=== PATIENT | female | born 1965 | race Two or more races ===

== ENCOUNTER 2016-07-28 14:08 | Emergency (ER) | payer OTHER ==
[~2016-07-28] VITALS: Ht 157.5 cm; Wt 58.1 kg
[~2016-07-28 14:08] MED LIST: ESTR-7 PO; LEVO75CA2 PO; PRED5TAB PO
[2016-07-28 14:55] LABS: BASOPHILS # (AUTO) 0.1 /CMM (0.0-0.2); BASOPHILS % (AUTO) 0.8 % (0.0-2.0); DIFF TOTAL % 100 %; EOSINOPHILS % (AUTO) 0.2 % (0.0-6.0); HEMATOCRIT 37 % (33-45); HEMOGLOBIN 12.4 g/dL (11.5-14.8); LYMPHOCYTES # (AUTO) 1.2 /CMM (0.8-4.8); LYMPHOCYTES % (AUTO) 14.9 % (20.0-44.0); MEAN CORPUSCULAR HEMOGLOBIN 31 PG (26.0-33.0); MEAN CORPUSCULAR HGB CONC 33 g/dl (31.0-36.0); MEAN CORPUSCULAR VOLUME 92 fL (82-100); MONOCYTES # (AUTO) 0.2 /CMM (0.1-1.30); MONOCYTES % (AUTO) 1.9 % (2.0-12.0); NEUTROPHILS # (AUTO) 6.4 /CMM (1.8-8.9); NEUTROPHILS % (AUTO) 82.2 % (43.0-81.0); PLATELET COUNT (AUTO) 283 /CMM (150-450); RED BLOOD CELL COUNT(AUTO) 4.04 MIL/uL (4.0-5.2); WHITE BLOOD COUNT (AUTO) 7.9 K/uL (4.3-11.0)
[2016-07-28] MEDS ORDERED: IV NS 0.9% 1,000 ML BAG IV ONE (15:00)
[2016-07-28] MEDS ORDERED: IV SET PRIMARY 1 EA INFUS.SET MC ONE (15:07)
[2016-07-28] MEDS ORDERED: IV NS 0.9% 1,000 ML ONE (15:07)
[2016-07-28 15:11] LABS: ALANINE AMINOTRANSFERASE 14 U/L (12-78); ALBUMIN 3.6 g/dL (3.4-5.0); ANION GAP 14 (5-14); ASPARTATE AMINOTRANSFERASE 14 U/L (15-37); BILIRUBIN,TOTAL 0.2 mg/dL (0.2-1.0); CALCIUM, SERUM 8.4 mg/dL (8.5-10.1); CARBON DIOXIDE 27 mmol/L (21-32); CHLORIDE 106 mmol/L (98-107); CREATININE 0.9 mg/dL (0.6-1.3); GFR 66 mL/min (>60); GLUCOSE 92 mg/dL (74-106); SODIUM SERUM 142 mmol/L (136-145); TOTAL PROTEIN, SERUM 6.9 g/dL (6.4-8.2); UREA NITROGEN, BLOOD 20 mg/dL (7-18)
[2016-07-28 15:12] LABS: INR 0.94 (0.87-1.13); PROTHROMBIN TIME 9.9 SECS (9.5-12.7)
[2016-07-28 15:13] LABS: TROPONIN I < 0.017 ng/mL (0.00-0.056)
[2016-07-28 15:14] LABS: INDIRECT BILIRUBIN 0.2 mg/dL (0.0-1.1)
[2016-07-28 15:20] LABS: LACTIC ACID 1.8 mmol/L (0.4-2.0)
[2016-07-28 15:57] LABS: KETONES,URINE Negative (NEGATIVE); LEUKOCYTE ESTERASE ,URINE Negative (NEGATIVE)
[2016-07-28 16:00] LABS: ADD UA MICROSCOPIC YES
[2016-07-28 16:06] LABS: ADD URINE CULTURE NO; RBC,URINE 0-2 /HPF (0-2); WBC,URINE 0-2 /HPF (0-3)
[2016-07-28 16:39] VITALS: BP 129/84
== END 2016-07-28 16:40 | disposition home or self-care (01) ==
LOC: ER 14:12
DX: R42 Dizziness and giddiness (principal); F41.9 Anxiety disorder, unspecified; F32.9 Major depressive disorder, single episode, unspecified; E23.0 Hypopituitarism; M32.9 Systemic lupus erythematosus, unspecified; E27.40 Unspecified adrenocortical insufficiency
CPT/HCPCS: 36415; 71010; 80048; 80076; 81001; 83605; 84443; 84484; 85025; 85730; 87040 ×2; 87804; 93005; 96360; 99285; A4606; J7030; 81000-TC; 87400

== ENCOUNTER 2016-10-03 09:29 | Emergency (ER) | payer OTHER ==
[~2016-10-03] VITALS: Ht 157.5 cm; Wt 50.3 kg
[2016-10-03 09:29] VITALS: BP 110/63
[2016-10-03] MEDS ORDERED: predniSONE 20 MG TABLET ONE (10:14)
[2016-10-03] MEDS ORDERED: diphenhydrAMINE HCL 25 MG CAPSULE ONE (10:14)
[2016-10-03] MEDS: predniSONE 20 MG TABLET PO ONE (10:22)
[2016-10-03] MEDS: DIPHENHYDRAMINE HCL 12.5 MG/5 ML UDC PO ONE (10:23)
== END 2016-10-03 10:25 | disposition home or self-care (01) ==
LOC: ER 09:31
DX: R21 Rash and other nonspecific skin eruption (principal); F41.9 Anxiety disorder, unspecified; F32.9 Major depressive disorder, single episode, unspecified; E23.0 Hypopituitarism; E27.40 Unspecified adrenocortical insufficiency; M32.9 Systemic lupus erythematosus, unspecified; Z98.890 Other specified postprocedural states
CPT/HCPCS: A4606; Q0163; Z7610